=== PATIENT | male | born 1960 | race Caucasian/White ===

== ENCOUNTER 2017-05-31 19:43 | Emergency (ER) | payer OTHER ==
[~2017-05-31] VITALS: Ht 188 cm; Wt 142.7 kg
[~2017-05-31 19:43] MED LIST: FLEXERIL10 MG PO; FLONASE16 G1 BOTH NARES; MOTRIN800 MG PO; MUCUS ER600 MG PO; NOHOMEMEDS; PREDNISONE20 MG PO; TESSALON PERLE100 MG PO
[2017-05-31] MEDS ORDERED: NEURONTIN100 MG PO (22:29)
[2017-05-31] MEDS ORDERED: LO-DOSE ASPIRIN81 M1 PO (22:29)
[2017-05-31 22:44] VITALS: BP 137/66
[2017-05-31] MEDS ORDERED: PERCOCET 5/31 TABLET PO (22:44)
== END 2017-05-31 23:14 | disposition home or self-care (01) ==
LOC: EME → EDBD 19:43 → EME 23:14
PROC: 0HQLXZZ Repair Left Lower Leg Skin, External Approach (ICD-10-PCS; principal; 2017-05-31)
DX: S81.812A Laceration without foreign body, left lower leg, initial encounter (principal); R58 Hemorrhage, not elsewhere classified; V28.4XXA Motorcycle driver injured in noncollision transport accident in traffic accident, initial encounter; Z79.82 Long term (current) use of aspirin; Z85.71 Personal history of Hodgkin lymphoma
CPT/HCPCS: 73590; 73630; 99281; 99285

== ENCOUNTER 2017-06-09 15:35 | Emergency (ER) | payer OTHER ==
[~2017-06-09] VITALS: Ht 188 cm; Wt 151.8 kg
[~2017-06-09 15:35] MED LIST changes: +LO-DOSE ASPIRIN81 M1 PO; +NEURONTIN100 MG PO; +PERCOCET 5/31 TABLET PO
[2017-06-09 16:47] LABS: HEMATOCRIT 36.7 % (38.0-50.0); MCH 30.4 PG (29.0-34.0); MCHC 34.3 G/DL (30.0-36.0); MCV 88.4 FL (86-99); MEAN PLAT.VOLUME 7.8 uM^3 (9.0-12.4); PLATELET COUNT 186 K/uL (156-360); RBC DIS.WIDTH-CV 12.4 % (11.8-14.6); RBC DIS.WIDTH-SD 40.4 % (39-53); RED BLOOD COUNT 4.15 M/uL (4.00-5.50); WHITE BLOOD COUNT 5.3 K/uL (4.1-10.2)
[2017-06-09 16:57] LABS: CHLORIDE 107 mEq/L (99-109); POTASSIUM 3.8 mEq/L (3.7-5.4); SODIUM 142 mEq/L (136-147)
[2017-06-09 16:59] LABS: GLUCOSE 132 mg/dL (70-99)
[2017-06-09 17:00] LABS: ANION GAP 8 MEQ/L (2-14)
[2017-06-09 17:02] LABS: GFR ESTIMATE (CALCULATED) > 59 mL/min/
[2017-06-09 17:03] LABS: UREA NITROGEN (BUN) 14 mg/dL (9-23)
[2017-06-09 19:22] VITALS: BP 149/88
== END 2017-06-09 19:25 | disposition home or self-care (01) ==
LOC: EME 15:35
PROVIDERS: Physician Assistant
DX: L03.116 Cellulitis of left lower limb (principal); S81.812D Laceration without foreign body, left lower leg, subsequent encounter; Z85.71 Personal history of Hodgkin lymphoma; Z79.82 Long term (current) use of aspirin
CPT/HCPCS: 80048; 85027; 93971; 99281; 99283; J0696

== ENCOUNTER 2018-01-07 12:11 | Emergency (ER) | payer OTHER ==
[~2018-01-07] VITALS: Ht 188 cm; Wt 146.6 kg
[2018-01-07 14:24] LABS: HEMATOCRIT 42.3 % (38.0-50.0); MCH 30.5 PG (29.0-34.0); MCHC 35.5 G/DL (30.0-36.0); MCV 86.2 FL (86-99); PLATELET COUNT 165 K/uL (156-360); RBC DIS.WIDTH-CV 12.9 % (11.8-14.6); RBC DIS.WIDTH-SD 40.3 % (39-53); RED BLOOD COUNT 4.91 M/uL (4.00-5.50); WHITE BLOOD COUNT 4.8 K/uL (4.1-10.2)
[2018-01-07 14:32] LABS: CHLORIDE 106 mEq/L (99-109); POTASSIUM 3.5 mEq/L (3.7-5.4); SODIUM 140 mEq/L (136-147)
[2018-01-07 14:35] LABS: GLUCOSE 105 mg/dL (70-99)
[2018-01-07 14:37] LABS: TOTAL BILIRUBIN 1.1 mg/dL (0.0-1.0)
[2018-01-07 14:38] LABS: ALKALINE PHOSPHATASE 47 IU/L (3-129); CREATININE 0.9 mg/dL (0.6-1.3); GFR ESTIMATE (CALCULATED) > 59 mL/min/ (58.99-99999)
[2018-01-07 14:39] LABS: UREA NITROGEN (BUN) 14 mg/dL (9-23)
[2018-01-07 14:40] LABS: AST (GOT) 39 IU/L (2-34)
[2018-01-07 14:41] LABS: ALT (GPT) 56 IU/L (3-49)
[2018-01-07] MEDS ORDERED: NAPROSYN500 MG PO (15:23)
[2018-01-07] MEDS ORDERED: PREDNISONE20 MG PO (15:23)
[2018-01-07] MEDS ORDERED: VENTOLIN HFA18 GM IH (15:23)
[2018-01-07 15:44] VITALS: BP 132/78
== END 2018-01-07 15:50 | disposition home or self-care (01) ==
LOC: EME 12:11
PROVIDERS: Nurse Practitioner Acute Care
DX: I80.01 Phlebitis and thrombophlebitis of superficial vessels of right lower extremity (principal); M71.21 Synovial cyst of popliteal space [Baker], right knee; J45.909 Unspecified asthma, uncomplicated; Z85.71 Personal history of Hodgkin lymphoma; Z79.82 Long term (current) use of aspirin; Z88.8 Allergy status to other drugs, medicaments and biological substances
CPT/HCPCS: 71046; 80053; 85027; 85379; 93971; 94640; 99281; 99284